=== PATIENT | male | born 1955 | race African-American/Black ===

== ENCOUNTER 2017-08-12 17:55 | Inpatient (IN) | payer OTHER ==
[~2017-08-12] VITALS: Ht 182.9 cm; Wt 103.2 kg
[2017-08-12 19:42] LABS: BASE EXCESS -3.7 mEq/L (-3 to +3); BICARBONATE 20.7 mEq/L (22-26); CARBOXY HGB 2.2 % (0-5); PCO2 35 mm Hg (35-45); PO2 76 mm Hg (80-100); pH 7.38 (7.35-7.45)
[2017-08-12 19:43] LABS: COMMENTS - BLOOD GASES C+; FI02 21 %; SITE RR; TOTAL RESP RATE 20 resp/min
[2017-08-12 19:50] LABS: ADD MIUA? NO; BILIRUBIN NEGATIVE; BLOOD NEGATIVE; COLOR STRAW ((YELLOW)); GLUCOSE (STRIP) >=500; KETONES 5; LEUKOCYTES NEGATIVE; NITRITE NEGATIVE; PROTEIN (STRIP) NEGATIVE; UCUL ADDED? NO; UROBILINOGEN 0.2 MG/DL (0.2-1.0)
[2017-08-12 20:06] LABS: EOSINOPHIL (%) 2.1 % (0-5); EOSINOPHIL COUNT 0.1 K/uL (0-0.3); HEMATOCRIT 40.9 % (38.0-50.0); IMMATURE GRANULOCYTE (%) 0.6 % (0.0-0.7); INSTRUMENT ABS NEUTROPHIL CT 3.1 K/uL; LYMPHOCYTE COUNT 1.4 K/uL (1.0-2.8); MCH 29.3 PG (29.0-34.0); MCHC 34.5 G/DL (30.0-36.0); MEAN PLAT.VOLUME 10.4 uM^3 (9.0-12.4); MONOCYTE (%) 12.9 % (3-12); MONOCYTE COUNT 0.7 K/uL (0-0.8); NEUTROPHIL (%) 57.5 % (45-76); NEUTROPHIL COUNT 3.1 K/uL (1.8-6.4); PLATELET COUNT 204 K/uL (156-360); RBC DIS.WIDTH-SD 40.5 % (39-53); RED BLOOD COUNT 4.81 M/uL (4.00-5.50); WHITE BLOOD COUNT 5.4 K/uL (4.1-10.2)
[2017-08-12 20:07] LABS: CHLORIDE 100 mEq/L (99-109); POTASSIUM 5.1 mEq/L (3.7-5.4); SODIUM 134 mEq/L (136-147)
[2017-08-12 20:09] LABS: GLUCOSE 511 mg/dL (70-99)
[2017-08-12 20:10] LABS: ANION GAP 15 MEQ/L (2-14)
[2017-08-12 20:12] LABS: GFR ESTIMATE (CALCULATED) > 59 mL/min/
[2017-08-12 20:13] LABS: UREA NITROGEN (BUN) 24 mg/dL (9-23)
[2017-08-12 21:52] LABS: POINT-OF-CARE METER ID UU13113702
[2017-08-12 22:31] LABS: MAGNESIUM 2.4 mg/dL (1.3-2.7)
[2017-08-12 22:35] LABS: TOTAL BILIRUBIN 1.4 mg/dL (0.0-1.0)
[2017-08-12 22:36] LABS: ALKALINE PHOSPHATASE 66 IU/L (3-129); SERUM ETHYL ALCOHOL < 10 mg/dL
[2017-08-12 22:39] LABS: DIRECT BILIRUBIN 0.4 mg/dL (0.0-0.3)
[2017-08-12 22:59] LABS: AMPHETAMINE NEGATIVE (500 ng/mL); BARBITURATES NEGATIVE (200 ng/mL); BENZODIAZEPINES NEGATIVE (150 ng/mL); COCAINE NEGATIVE (150 ng/mL); INTERNAL CONTROLS VALID? YES; METHADONE NEGATIVE (200 ng/mL); METHAMPHETAMINE NEGATIVE (500 ng/mL); OPIATES (MORPHINE) NEGATIVE (100 ng/mL); OXYCODONE NEGATIVE (100 ng/mL); PHENCYCLIDINE NEGATIVE (25 ng/mL); PROPOXYPHENE NEGATIVE (300 ng/mL); THC CANNABINOIDS NEGATIVE (50 ng/mL); TRICYCLIC ANTIDEPRESSANTS NEGATIVE (300 ng/mL)
[2017-08-13] VITALS (7 sets, daily range): BP systolic 121–143; BP diastolic 76–94
[2017-08-13 01:48] LABS: POINT-OF-CARE METER ID UU14188625
[2017-08-13 05:32] LABS: POINT-OF-CARE METER ID UU13113717
[2017-08-13 06:47] LABS: HDL CHOLESTEROL 23 MG/DL (Desirable>=40); LDL CHOLESTEROL 62 mg/dL (Desirable<100); NON-HDL CHOLESTEROL 90 mg/dL (Desirable<160); TOTAL CHOLESTEROL 113 mg/dL (Desirable<200); TRIGLYCERIDES 139 MG/DL (Normal: <150)
[2017-08-13] MEDS ORDERED: LANTUS 3 M100 UNITS1 SC (11:30)
[2017-08-13] MEDS ORDERED: LO-DOSE ASPIRIN81 M2 PO (11:31)
[2017-08-13] MEDS ORDERED: PRINIVIL5 MG PO (11:31)
[2017-08-13] MEDS ORDERED: CATAPRES0.1 MG PO (11:31)
[2017-08-13] MEDS ORDERED: HUMALOG100 UNIT/2 SC (11:31)
[2017-08-13] MEDS ORDERED: NORVASC5 MG PO (11:31)
[2017-08-13] MEDS ORDERED: TENORMIN25 MG PO (11:32)
[2017-08-13] MEDS ORDERED: LIPITOR40 MG PO (11:32)
[2017-08-13] MEDS ORDERED: VENTOLIN HFA18 GM IH (11:32)
[2017-08-13] MEDS ORDERED: PLAVIX75 MG PO (11:32)
[2017-08-13 11:59] LABS: POINT-OF-CARE METER ID UU13113717
[2017-08-13 18:13] LABS: POINT-OF-CARE METER ID UU14188625
[2017-08-13 19:59] LABS: POINT-OF-CARE METER ID UU14174225
[2017-08-13 21:14] LABS: POINT-OF-CARE METER ID UU14174225
[2017-08-13 21:14] LABS: POINT-OF-CARE METER ID UU13113717
[2017-08-13 21:27] LABS: POINT-OF-CARE METER ID UU13113702
[2017-08-13 21:59] LABS: POINT-OF-CARE METER ID UU13113717
[2017-08-14] VITALS (23 sets, daily range): BP systolic 57–121; BP diastolic 39–74
[2017-08-14 01:49] LABS: CARBOXY HGB 2.2 % (0-5)
[2017-08-14 01:50] LABS: DEVICE NRB MASK; O2 FLOW 15 L/MIN; PCO2 43 mm Hg (35-45); PO2 224 mm Hg (80-100); SITE RR; pH < 6.90 (7.35-7.45)
[2017-08-14 01:51] LABS: POINT-OF-CARE METER ID UU13113717
[2017-08-14 03:15] LABS: METH RESISTANT S AUREUS PCR NEGATIVE (NEGATIVE)
[2017-08-14 03:16] LABS: CHLORIDE 107 mEq/L (99-109); POTASSIUM 5.4 mEq/L (3.7-5.4)
[2017-08-14 03:17] LABS: PROBE CHECK PASS; SPECIMEN PROCESSING CONTROL PASS
[2017-08-14 03:17] LABS: GLUCOSE 263 mg/dL (70-99)
[2017-08-14 03:19] LABS: ANION GAP 39 MEQ/L (2-14)
[2017-08-14 03:22] LABS: UREA NITROGEN (BUN) 13 mg/dL (9-23)
[2017-08-14 03:34] LABS: CARBON DIOXIDE (BICARBONATE) < 5.0 mEq/L (20-31); GFR ESTIMATE (CALCULATED) 44 mL/min/; SODIUM 150 mEq/L (136-147)
[2017-08-14 05:03] LABS: CHLORIDE 109 mEq/L (99-109); HEMATOCRIT 36.2 % (38.0-50.0); MCH 30.2 PG (29.0-34.0); MCHC 31.5 G/DL (30.0-36.0); MEAN PLAT.VOLUME 10.9 uM^3 (9.0-12.4); NRBC (%) 0.3 /100 WBC (0-0); PLATELET COUNT 188 K/uL (156-360); RBC DIS.WIDTH-CV 13.2 % (11.8-14.6); RBC DIS.WIDTH-SD 46.3 % (39-53); SODIUM 145 mEq/L (136-147); WHITE BLOOD COUNT 24.9 K/uL (4.1-10.2)
[2017-08-14 05:05] LABS: GLUCOSE 186 mg/dL (70-99)
[2017-08-14 05:06] LABS: ANION GAP 32 MEQ/L (2-14)
[2017-08-14 05:07] LABS: TOTAL BILIRUBIN 1.3 mg/dL (0.0-1.0)
[2017-08-14 05:07] LABS: CARBOXY HGB 1.8 % (0-5); DEVICE 980; METHEMOGLOBIN 1.5 % (0-1.5); PCO2 37 mm Hg (35-45); PO2 130 mm Hg (80-100); SITE LR
[2017-08-14 05:08] LABS: ALKALINE PHOSPHATASE 62 IU/L (3-129)
[2017-08-14 05:08] LABS: FI02 50 %; MECHANICAL RATE 16 resp/min; MODE AC; PEEP 5 CM/H20; TIDAL VOLUME 500 ML; TOTAL RESP RATE 20 resp/min; pH < 6.90 (7.35-7.45)
[2017-08-14 05:09] LABS: GFR ESTIMATE (CALCULATED) 35 mL/min/
[2017-08-14 05:10] LABS: UREA NITROGEN (BUN) 13 mg/dL (9-23)
[2017-08-14 05:18] LABS: CARBON DIOXIDE (BICARBONATE) < 5.0 mEq/L (20-31); POTASSIUM 8.2 mEq/L (3.7-5.4)
[2017-08-14 05:27] LABS: MCV 95.8 FL (86-99); RED BLOOD COUNT 3.78 M/uL (4.00-5.50)
[2017-08-14 05:40] LABS: ABS NEUTROPHIL COUNT 15.8; ATYPICAL LYMPHOCYTE 1.8 %; BAND NEUTROPHILS 4.4 % (0-8.0); BASOPHILS 1.8 %; BURR CELLS 1+; EOSINOPHIL ABS CT 0.1; EOSINOPHILS 0.4 % (0-5.0); INSTRUMENT ABS NEUTROPHIL CT 14.2 K/uL; LYMPHOCYTES 22.7 % (15.0-45.0); OVALOCYTES 1+; PLAT.SUFFICIENCY ADEQUATE; POLYCHROMASIA 1+; SEG.NEUTROPHILS 59.1 % (46.0-76.0)
[2017-08-14 07:57] LABS: BICARBONATE 10.5 mEq/L (22-26); CARBOXY HGB 0.9 % (0-5); METHEMOGLOBIN 2.4 % (0-1.5); PCO2 30 mm Hg (35-45); PO2 479 mm Hg (80-100); SITE FEM; pH 7.15 (7.35-7.45)
[2017-08-14 07:58] LABS: DEVICE AMBU; FI02 100 %; O2 FLOW 15 L/MIN
[2017-08-14 08:06] LABS: POINT-OF-CARE METER ID UU14314082
[2017-08-14 08:10] LABS: MCV 89.8 FL (86-99)
[2017-08-14 08:18] LABS: INTER. NORMALIZED RATIO 1.3; PROTHROMBIN TIME 15.4 SEC (10.2-12.9)
[2017-08-14 08:21] LABS: PTT 49.5 SEC (25-37)
[2017-08-14 08:23] LABS: CHLORIDE 105 mEq/L (99-109); SODIUM 142 mEq/L (136-147)
[2017-08-14 08:27] LABS: ANION GAP 29 MEQ/L (2-14); GLUCOSE 345 mg/dL (70-99); POTASSIUM 9.6 mEq/L (3.7-5.4)
[2017-08-14 08:28] LABS: MAGNESIUM 3.5 mg/dL (1.3-2.7)
[2017-08-14 08:29] LABS: GFR ESTIMATE (CALCULATED) 31 mL/min/
[2017-08-14 08:32] LABS: UREA NITROGEN (BUN) 13 mg/dL (9-23)
[2017-08-14 08:48] LABS: Estimated Average Glucose 329 mg/dL (70-123)
[2017-08-14 08:49] LABS: BICARBONATE 10.6 mEq/L (22-26); CARBOXY HGB 1.5 % (0-5); COMMENTS - BLOOD GASES C+; DEVICE VENTILATOR; FI02 100 %; METHEMOGLOBIN 1.7 % (0-1.5); PCO2 35 mm Hg (35-45); PO2 440 mm Hg (80-100); SITE A LINE; pH 7.09 (7.35-7.45)
[2017-08-14 08:50] LABS: INSPIRATION TIME 0.9 seconds; MECHANICAL RATE 20 resp/min; MODE AC+; PEEP 5 CM/H20; TIDAL VOLUME 500 ML; TOTAL RESP RATE 24 resp/min
[2017-08-14 09:14] LABS: HEMOGLOBIN A1c (GLYCOHEMOGLOB) 13.1 % HGB (Below 5.7)
[2017-08-14 09:22] LABS: TOTAL CK 4100 IU/L (1-294)
[2017-08-14 09:23] LABS: CREATINE KINASE 4100 IU/L (1-294)
[2017-08-14 09:24] LABS: TROP-I INTERPRETATION NEGATIVE; TROPONIN-I 0.11 ng/mL (0.0-0.30)
[2017-08-14 10:13] LABS: POINT-OF-CARE METER ID UU14314082
[2017-08-14 10:32] LABS: BASE EXCESS -9.6 mEq/L (-3 to +3); CARBOXY HGB 1.5 % (0-5); METHEMOGLOBIN 2.5 % (0-1.5); PCO2 36 mm Hg (35-45)
[2017-08-14 10:34] LABS: BICARBONATE 16.5 mEq/L (22-26); COMMENTS - BLOOD GASES C+; DEVICE VENTILATOR; FI02 50 %; INSPIRATION TIME 0.9 seconds; MECHANICAL RATE 20 resp/min; MODE AC+; PEEP 5 CM/H20; PO2 100 mm Hg (80-100); SITE A LINE; TIDAL VOLUME 500 ML; TOTAL RESP RATE 28 resp/min; pH 7.27 (7.35-7.45)
[2017-08-14 11:11] LABS: FIBRINOGEN 114 mg/dL (150-450)
[2017-08-14 11:20] LABS: HBSG INDEX 0.15
[2017-08-14 11:21] LABS: AHBS INDEX 0.49; HEPATITIS B SURFACE ANTIBODY Nonreactive
[2017-08-14 11:22] LABS: ANTI-HEPATITIS B CORE (TOTAL) Nonreactive; HBCT INDEX 0.08
[2017-08-14 11:55] LABS: TREPONEMA ANTIBODY NEGATIVE (NEGATIVE)
[2017-08-14 13:02] LABS: ANION GAP 32 MEQ/L (2-14); CHLORIDE 105 MEQ/L (99-109); GFR ESTIMATE (CALCULATED) 28 mL/min/; GLUCOSE 319 mg/dL (70-99); SAMPLE HEMOLYSIS CHECK 0; SAMPLE ICTERIC CHECK 0; SAMPLE LIPEMIA CHECK 0; UREA NITROGEN (BUN) 17 mg/dL (9-23)
[2017-08-14 13:10] LABS: POTASSIUM 7.5 MEQ/L (3.7-5.4); SODIUM 153 MEQ/L (136-147)
[2017-08-14 13:54] LABS: POINT-OF-CARE METER ID UU14314082
[2017-08-14 16:41] LABS: ANION GAP 33 MEQ/L (2-14); CHLORIDE 105 MEQ/L (99-109); SAMPLE HEMOLYSIS CHECK 0; SAMPLE ICTERIC CHECK 0; SAMPLE LIPEMIA CHECK 0; SODIUM 149 MEQ/L (136-147); UREA NITROGEN (BUN) 11 mg/dL (9-23)
[2017-08-14 16:43] LABS: GFR ESTIMATE (CALCULATED) 41 mL/min/; GLUCOSE 154 mg/dL (70-99)
[2017-08-14 16:49] LABS: POTASSIUM 6.4 MEQ/L (3.7-5.4)
[2017-08-14 16:59] LABS: BASE EXCESS -14.5 mEq/L (-3 to +3); PCO2 41 mm Hg (35-45); PO2 77 mm Hg (80-100); pH 7.14 (7.35-7.45)
[2017-08-14 17:00] LABS: COMMENTS - BLOOD GASES C+; DEVICE VENT; FI02 50 %; INSPIRATION TIME 0.9 seconds; MECHANICAL RATE 20 resp/min; MODE AC/VC+; PEEP 5 CM/H20; SITE ALINE; TIDAL VOLUME 500 ML; TOTAL RESP RATE 20 resp/min
[2017-08-14 17:41] LABS: POINT-OF-CARE METER ID UU14314082
[2017-08-14 17:51] LABS: HEMATOCRIT 10.8 % (38.0-50.0); MCV 93.1 FL (86-99)
[2017-08-14 18:37] LABS: BASE EXCESS -19.8 mEq/L (-3 to +3); PO2 90 mm Hg (80-100)
[2017-08-14 18:38] LABS: BICARBONATE 9.6 mEq/L (22-26); PCO2 34 mm Hg (35-45); pH 7.06 (7.35-7.45)
[2017-08-14 18:39] LABS: HEMATOCRIT 10.8 % (38.0-50.0); MCH 29.8 PG (29.0-34.0); MCHC 31.5 G/DL (30.0-36.0); MCV 94.7 FL (86-99); NRBC (%) 3.6 /100 WBC (0-0); RBC DIS.WIDTH-CV 14.3 % (11.8-14.6); RBC DIS.WIDTH-SD 48.6 % (39-53); RED BLOOD COUNT 1.14 M/uL (4.00-5.50); WHITE BLOOD COUNT 11.8 K/uL (4.1-10.2)
[2017-08-14 18:39] LABS: COMMENTS - BLOOD GASES C+; DEVICE VENTILATOR; INSPIRATION TIME 0.9 seconds; MECHANICAL RATE 20 resp/min; MODE AC+; PEEP 5 CM/H20; SITE A LINE; TIDAL VOLUME 500 ML; TOTAL RESP RATE 20 resp/min
[2017-08-14 19:19] LABS: MEAN PLAT.VOLUME 10.5 uM^3 (9.0-12.4); PLAT.SUFFICIENCY VERY DECREASED
[2017-08-14 19:45] LABS: HEMATOCRIT 7.6 % (38.0-50.0); MCH 29.9 PG (29.0-34.0); MCHC 34.2 G/DL (30.0-36.0); NRBC (%) 5.1 /100 WBC (0-0); RBC DIS.WIDTH-CV 14.1 % (11.8-14.6); RBC DIS.WIDTH-SD 43.7 % (39-53); WHITE BLOOD COUNT 8.8 K/uL (4.1-10.2)
[2017-08-14 19:47] LABS: CHLORIDE 99 mEq/L (99-109)
[2017-08-14 19:49] LABS: MCV 87.4 FL (86-99); RED BLOOD COUNT 0.87 M/uL (4.00-5.50)
[2017-08-14 19:49] LABS: PLATELET COUNT 37 K/uL (156-360)
[2017-08-14 19:51] LABS: ANION GAP 37 MEQ/L (2-14)
[2017-08-14 19:53] LABS: GFR ESTIMATE (CALCULATED) 44 mL/min/
[2017-08-14 19:54] LABS: UREA NITROGEN (BUN) 10 mg/dL (9-23)
[2017-08-14 19:56] LABS: URIC ACID 10.2 mg/dL (3.1-9.2)
[2017-08-14 20:10] LABS: GLUCOSE 93 mg/dL (70-99)
[2017-08-14 20:11] LABS: POTASSIUM 7.5 mEq/L (3.7-5.4); SODIUM 171 mEq/L (136-147)
[2017-08-14 20:40] LABS: ABS NEUTROPHIL COUNT 5.7; ANISOCYTOSIS 1+; EOSINOPHIL ABS CT 0; HEMATOLOGY COMMENT 1 OTHERS=PROMYELOCYTES; INSTRUMENT ABS NEUTROPHIL CT 5.4 K/uL; MEAN PLAT.VOLUME 10.8 uM^3 (9.0-12.4); PLAT.SUFFICIENCY VERY DECREASED; PLATELET COUNT 40 K/uL (156-360)
[2017-08-14 21:20] LABS: ALKALINE PHOSPHATASE 183 IU/L (3-129); ANION GAP 41 MEQ/L (2-14); CHLORIDE 105 MEQ/L (99-109); GLUCOSE 105 mg/dL (70-99); SAMPLE HEMOLYSIS CHECK 0; SAMPLE ICTERIC CHECK 0; SAMPLE LIPEMIA CHECK 0; TOTAL BILIRUBIN 0.7 MG/DL (0.0-1.0); UREA NITROGEN (BUN) 15 mg/dL (9-23)
[2017-08-14 21:21] LABS: GFR ESTIMATE (CALCULATED) 34 mL/min/; POTASSIUM 9.2 MEQ/L (3.7-5.4); SODIUM 157 MEQ/L (136-147)
[2017-08-14 22:14] LABS: ANION GAP 38 MEQ/L (2-14); CHLORIDE 108 MEQ/L (99-109); GFR ESTIMATE (CALCULATED) 34 mL/min/; GLUCOSE 139 mg/dL (70-99); MAGNESIUM 2.8 mg/dl (1.3-2.7); SAMPLE HEMOLYSIS CHECK 0; SAMPLE ICTERIC CHECK 0; SAMPLE LIPEMIA CHECK 0; SODIUM 155 MEQ/L (136-147); UREA NITROGEN (BUN) 15 mg/dL (9-23)
[2017-08-14 22:15] LABS: POTASSIUM 9.6 MEQ/L (3.7-5.4)
[2017-08-14 23:25] LABS: POINT-OF-CARE METER ID UU14314082
== END 2017-08-14 23:15 | DRG 70 ==
LOC: EME 17:55 → 4WEST 22:10 → 5SOUTH 22:10 → 4WEST 22:10 → EDOF 22:10 → ENRESERV 22:11 → 5SOUTH 08-13 00:26 → ENRESERV 08-14 01:47 → 5SOUTH 08-14 01:49 → 4WEST 08-14 01:50
PROVIDERS: Emergency Medicine; Hospitalist; Internal Medicine; Internal Medicine Critical Care Medicine; Internal Medicine Nephrology; Physician Assistant Medical; Surgery
PROC: 0BH17EZ Insertion of Endotracheal Airway into Trachea, Via Natural or Artificial Opening (ICD-10-PCS; principal; 2017-08-14)
PROC: 5A1935Z Respiratory Ventilation, Less than 24 Consecutive Hours (ICD-10-PCS; principal; 2017-08-14)
PROC: 04HY32Z Insertion of Monitoring Device into Lower Artery, Percutaneous Approach (ICD-10-PCS; 2017-08-14)
PROC: 06HN33Z Insertion of Infusion Device into Left Femoral Vein, Percutaneous Approach (ICD-10-PCS; 2017-08-14)
PROC: 5A1D90Z Performance of Urinary Filtration, Continuous, Greater than 18 hours Per Day (ICD-10-PCS; 2017-08-14)
PROC: 30233K1 Transfusion of Nonautologous Frozen Plasma into Peripheral Vein, Percutaneous Approach (ICD-10-PCS; 2017-08-14)
PROC: 30233N1 Transfusion of Nonautologous Red Blood Cells into Peripheral Vein, Percutaneous Approach (ICD-10-PCS; 2017-08-14)
PROC: 30233R1 Transfusion of Nonautologous Platelets into Peripheral Vein, Percutaneous Approach (ICD-10-PCS; 2017-08-14)
PROC: 06HN33Z Insertion of Infusion Device into Left Femoral Vein, Percutaneous Approach (ICD-10-PCS; 2017-08-14)
PROC: 06PYX3Z Removal of Infusion Device from Lower Vein, External Approach (ICD-10-PCS; 2017-08-14)
PROC: 5A12012 Performance of Cardiac Output, Single, Manual (ICD-10-PCS; 2017-08-14)
DX: G93.41 Metabolic encephalopathy (principal); E11.65 Type 2 diabetes mellitus with hyperglycemia; G40.409 Other generalized epilepsy and epileptic syndromes, not intractable, without status epilepticus; J96.01 Acute respiratory failure with hypoxia; A41.9 Sepsis, unspecified organism; R65.21 Severe sepsis with septic shock; N17.9 Acute kidney failure, unspecified; E87.0 Hyperosmolality and hypernatremia; E87.5 Hyperkalemia; I46.9 Cardiac arrest, cause unspecified; D64.9 Anemia, unspecified; D65 Disseminated intravascular coagulation [defibrination syndrome]; T82.41XA Breakdown (mechanical) of vascular dialysis catheter, initial encounter; E87.2 Acidosis; E86.0 Dehydration; J44.9 Chronic obstructive pulmonary disease, unspecified; R32 Unspecified urinary incontinence; I10 Essential (primary) hypertension; F14.10 Cocaine abuse, uncomplicated; F10.11 Alcohol abuse, in remission; R15.9 Full incontinence of feces; Z87.891 Personal history of nicotine dependence; Z86.73 Personal history of transient ischemic attack (TIA), and cerebral infarction without residual deficits; Z79.4 Long term (current) use of insulin
CPT/HCPCS: 31500; 36600; 70450; 70551; 71010; 71250; 76705; 80048; 80048 91; 80053; 80061; 80069; 80076; 81003; 82010; 82140; 82330; 82550; 82553; 82607; 82746; 82803; 82948; 83036; 83605; 83735; 84100; 84132 91; 84146; 84443; 84484; 84550; 85014; 85018; 85025; 85025 91; 85027; 85384; 85610; 85730; 86704; 86706; 86780; 86803; 86850; 86900; 86901; 86920; 87040; 87070; 87205; 87340; 87641; 92950; 93005; 94002; 99281; 99285; C1751; C1752; G0480; J0171; J0456; J0610; J0696; J1100; J1165; J1644; J1650; J1815; J2704; J3370; J7030; J7040; J7050; J7070; P9016; P9017; P9037; P9047